=== PATIENT | male | born 1965 | race African-American/Black ===

== ENCOUNTER 2022-01-16 12:34 | Emergency (ER) | payer SELFPAY | END 2022-01-16 13:25 | disposition home or self-care (01) | LOC: CSHERS 12:34 | DX: E11.65 Type 2 diabetes mellitus with hyperglycemia (principal); I10 Essential (primary) hypertension; F17.210 Nicotine dependence, cigarettes, uncomplicated; Z79.899 Other long term (current) drug therapy | CPT/HCPCS: 36416; 99284 ==